=== PATIENT | male | born 1995 | race Hispanic/Latino ===

== ENCOUNTER 2019-03-21 09:41 | Emergency (ER) | payer SELFPAY ==
[2019-03-21] MEDS ORDERED: HYDROXYZINE HCL 25 MG TABLET ONE (09:55)
== END 2019-03-21 10:47 | disposition home or self-care (01) ==
LOC: EDH 09:41
DX: F41.1 Generalized anxiety disorder (principal); F12.90 Cannabis use, unspecified, uncomplicated; Z72.0 Tobacco use